=== PATIENT | female | born 1975 ===

== ENCOUNTER 2024-08-12 11:45 | Inpatient (IN) | payer OTHER ==
[~2024-08-12] VITALS: Ht 154.9 cm; Wt 72.6 kg
[2024-08-12 14:18] VITALS: BP 136/84
[2024-08-18] MEDS ORDERED: POVIDONE-IODINE 118 ML BOTT TOP ONE (13:30)
[2024-08-18] MEDS ORDERED: CEFAZOLIN SODIUM 1,000 MG VIAL IV ONE (13:30)
[2024-08-18] MEDS ORDERED: MORPHINE SULFATE 4 MG/ML VIAL IV ONE (15:10)
[2024-08-18] MEDS ORDERED: MEPERIDINE HCL/PF 50 MG/ML VIAL IV SCH (16:00)
[2024-08-18] MEDS ORDERED: PROMETHAZINE HCL 25 MG/ML AMPUL IV SCH (16:00)
[2024-08-18 16:16] VITALS: BP 132/79
[2024-08-18 20:16] LABS: HEMATOCRIT 32.5 % (36.0-45.00); HEMOGLOBIN 11.6 g/dL (12.0-15.00); MEAN CELL VOLUME 94.1 fL (80.00-100.00); MEAN CORPUSCULAR HEMOGLOBIN 33.5 pg (27.00-32.0); MEAN CORPUSCULAR HGB CONC 35.6 g/dl (32.0-36.0); PLATELET COUNT 203 K/uL (150-450); RED BLOOD COUNT 3.46 M/uL (4.00-6.00); RED CELL DISTRIBUTION WIDTH 12.7 % (11.5-14.5)
[2024-08-19 00:28] VITALS: BP 140/78
[2024-08-19] MEDS ORDERED: IBUprofen 800 MG TABLET PO SCH (02:00)
[2024-08-19] MEDS ORDERED: POLYETHYLENE GLYCOL 3350 17 GM BLIST.PACK PO SCH (05:00)
[2024-08-19] MEDS ORDERED: GABAPENTIN 300 MG CAPSULE PO SCH (05:00)
[2024-08-19] MEDS ORDERED: SIMETHICONE 125 MG CAPSULE PO SCH (05:00)
[2024-08-19 07:42] VITALS: BP 144/75
[2024-08-19 15:28] VITALS: BP 137/84
[2024-08-19 20:56] VITALS: BP 132/77
[2024-08-20 00:41] VITALS: BP 119/74
[2024-08-20] MEDS ORDERED: IBUPROFEN800 MG PO (06:28)
[2024-08-20] MEDS ORDERED: SIMETHICONE125 M1 PO (06:28)
[2024-08-20] MEDS ORDERED: POLY119PG PO (06:28)
[2024-08-20] MEDS ORDERED: GABAPENTIN300 MG PO (06:28)
[2024-08-20 07:53] VITALS: BP 106/70
== END 2024-08-20 09:08 | disposition home or self-care (01) | DRG 743 ==
LOC: OB/GYN 08-18 04:50 → O/R 08-18 04:50 → OB/GYN 08-18 11:45
PROVIDERS: ADMIT Obstetrics & Gynecology; ATTEND Obstetrics & Gynecology
PROC: 0UT90ZZ Resection of Uterus, Open Approach (ICD-10-PCS; principal; 2024-08-18 14:00)
DX: D25.1 Intramural leiomyoma of uterus (principal); N72 Inflammatory disease of cervix uteri; Z20.822 Contact with and (suspected) exposure to COVID-19; R10.2 Pelvic and perineal pain